=== PATIENT | female | born 1990 ===

== ENCOUNTER 2016-05-12 16:46 | Emergency (ER) | payer MEDICAID ==
[2016-05-12 16:55] VITALS: BP 120/61; PULSE 75; RESP 16; TEMP 98.2; O2SAT 100
[2016-05-12] MEDS ORDERED: Sodium Chloride 0.9% 1,000 ML IV STA (17:12)
--- NOTE | 2016-05-12 17:31 | ED PDOC ---
HPI: Abdomen Time Seen by Provider: 05/12/16 16:56 Chief Complaint (Nursing): Abdominal Pain Chief Complaint (Provider): flank pain History Per: Patient, Family (mom and dad) Additional Complaint(s): patient with no medical problems presents for 2-3 week hx of intermittent dysuria, right flank pain which started intermittently now constant for 1-2 days radiating to the right lower region and suprapubic region with chills ? subjective fevers at onset (none for at least a week). continued pain prompted evaluation. she has not taken anything for pain. (-) diarrhea, vomiting, hx of kidney stones, frequent UTIs, kidney infections mom with hx of kidney stones Past Medical History Reviewed: Historical Data, Nursing Documentation, Vital Signs Vital Signs: Last Vital Signs Temp 98.2 F 05/12/16 16:51 Pulse 75 05/12/16 16:51 Resp 16 05/12/16 16:51 BP 120/61 05/12/16 16:51 Pulse Ox 100 05/12/16 17:34 - Medical History PMH: No Chronic Diseases - Surgical History Surgical History: No Surg Hx - Family History Family History: States: No Known Family Hx, Other (kidney stones ) - Living Arrangements Living Arrangements: With Family - Social History Current smoker - smoking cessation education provided: No Alcohol: Occasional Drugs: Denies - Home Medications Home Medications: Ambulatory Orders Medication Instructions Recorded Ibuprofen [Motrin] 600 mg PO TID PRN #30 tab 05/12/16 Ondansetron [Zofran] 4 mg PO Q8H #8 tab 05/12/16 Sulfamethoxazole/Trimethoprim 1 tab PO BID #14 tab 05/12/16 [Bactrim DS 800 mg-160 mg] Tamsulosin [Flomax] 0.4 mg PO DAILY #4 cap 05/12/16 - Allergies Allergies/Adverse Reactions: Allergies Allergy/AdvReac Type Severity Reaction Status Date / Time No Known Allergies Allergy Verified 05/12/16 16:51 Review of Systems ROS Statement: Except As Marked, All Systems Reviewed And Found Negative Cardiovascular: Negative for: Chest Pain Respiratory: Negative for: Shortness of Breath Genitourinary Female: Positive for: Dysuria, Frequency, Vaginal Bleeding (slight , irregular periods for years, LMP end of March ). Negative for: Vaginal Discharge Neurological: Negative for: Headache, Dizziness Physical Exam - Reviewed Nursing Documentation Reviewed: Yes Vital Signs Reviewed: Yes - Physical Exam Appears: Positive for: Well, Uncomfortable Head Exam: Positive for: NORMAL INSPECTION Skin: Positive for: Normal Color, Warm, Dry Eye Exam: Positive for: Normal appearance Neck: Positive for: Normal, Painless ROM Cardiovascular/Chest: Positive for: Regular Rate, Rhythm Respiratory: Positive for: Normal Breath Sounds Pulses-Dorsalis Pedis (L): 2+ Pulses-Dorsalis Pedis (R): 2+ Gastrointestinal/Abdominal: Positive for: Normal Exam, Soft. Negative for: Tenderness Back: Positive for: Normal Inspection, R CVA Tenderness (mild ). Negative for: L CVA Tenderness, Vertebral Tenderness Extremity: Positive for: Normal ROM, Capillary Refill (normal ). Negative for: Tenderness Neurologic/Psych: Positive for: Alert, Oriented, Gait (normal ). Negative for: Motor/Sensory Deficits - Laboratory Results Result Diagrams: 05/12/16 17:37 05/12/16 17:37 - ECG O2 Sat by Pulse Oximetry: 100 Pulse Ox Interpretation: Normal Medical Decision Making Medical Decision Makin25 y/o female with flank pain, dysuria r/o stone, r/o pyelonephritis - labs - ct - ua and uc toradol and IVF pain has resolved, she feels better slight if any CVA tenderness, no abdominal tenderness labs with no acute finding. UA with blood no signs of infection, BUN/Cr wnl EXAM: CT Abdomen and Pelvis Without Intravenous Contrast. CLINICAL HISTORY: Pain; Abdominal pain; Other: Rlq R/O stone; Additional info: Right flank pain, dysuria TECHNIQUE: Axial computed tomography images of the abdomen and pelvis without intravenous contrast. This CT exam was performed using one or more of the following dose reduction techniques: automated exposure control, adjustment of the mA and/or kV according to patient size, and/or use of iterative reconstruction technique. Coronal and sagittal reformatted images were created and reviewed. EXAM DATE/TIME: 05/12/2016 COMPARISON: None available at the time of interpretation. FINDINGS: Lower thorax: No pleural fluid collection, pneumothorax, or airspace consolidation in the imaged portion of the thorax. ABDOMEN: Liver: No acute findings. Gallbladder and bile ducts: Questionable gallbladder wall thickening. The gallbladder is physiologically distended. No radiopaque gallstones or pericholecystic inflammatory changes. No biliary ductal dilation. Pancreas: No acute findings. Spleen: No acute findings. Adrenals: No acute findings. Kidneys and ureters: 4 x 3 x 4 mm right UVJ calculus. Mild dilation of the right renal collecting system and ureter. Small, nonobstructing calculi in both renal collecting systems. Stomach and bowel: No evident acute abnormality. Appendix: Normal appendix. PELVIS: Bladder: Aside from the right UVJ calculus, there is no evident acute abnormality of the bladder. Reproductive: No evident acute abnormality of the gynecologic structures. ABDOMEN and PELVIS: Intraperitoneal space: No free intraperitoneal air. A small amount of free fluid in the posterior cul de sac is physiologic in amount. Bones/joints: No acute findings. Soft tissues: No acute findings. Vasculature: No acute findings. Lymph nodes: No acute findings. IMPRESSION: 1. Obstructing 4 mm right UVJ calculus with associated mild hydroureteronephrosis. 2. Small, nonobstructing calculi in both renal collecting systems. 3. Questionable gallbladder wall thickening which is a nonspecific finding. No radiopaque gallstones or other findings suggestive of acute cholecystitis. Thank you for allowing us to participate in the care of your patient. Dictated and Authenticated by: Jenna Gupta MD 05/12/2016 7:39 PM Eastern Time ([place] & [place]) review of CT scan shows stones in kidney, obstructing stone. ? gallbladder thickening Lipase negative, no RUQ tenderness, normal LFTs, no pain after eating. she has no pain. appears well. case discussed with patient, mom and dad in detail including CT finding. follow up information discussed, return information discussed including fever, inability to urinate, severe pain. all questions answered. stable for discharge. Disposition - Clinical Impression Clinical Impression: Flank pain, Kidney stone, Ureteral colic - Patient ED Disposition Is Patient to be Admitted: No Counseled Patient/Family Regarding: Studies Performed, Diagnosis, Need For Followup, Rx Given - Disposition Referrals: Aubrey Balderas MD [Medical Doctor] - Disposition: Routine/Home Disposition Time: 19:43 Condition: IMPROVED Additional Instructions: CT scan shows: 1. Obstructing 4 mm right UVJ calculus with associated mild hydroureteronephrosis.- a blocking stone in the distal park of the tube as well as swelling of the tube that connects you bladder and kidney 2. Small, nonobstructing calculi in both renal collecting systems. 3. Questionable gallbladder wall thickening which is a nonspecific finding- follow up with doctor for re-evaluation without fail return for right upper pain , vomiting or any new concerns. follow up with urologist without fail for further evaluation and treatment. Prescriptions: Sulfamethoxazole/Trimethoprim [Bactrim DS 800 mg-160 mg] 1 tab PO BID #14 tab Tamsulosin [Flomax] 0.4 mg PO DAILY #4 cap Ibuprofen [Motrin] 600 mg PO TID PRN #30 tab PRN Reason: Other Ondansetron [Zofran] 4 mg PO Q8H #8 tab Instructions: Renal Colic (ED), Kidney Stones (ED), Flank Pain (ED) Print Language: KAZAKH
[2016-05-12 17:42] LABS: BASO # 0.1 K/uL (0.0-0.2); BASO % 0.8 % (0.0-2.0); EOS # 0.2 K/uL (0.0-0.7); EOS % 2.2 % (0.0-4.0); HEMATOCRIT 36.8 % (34.0-47.0); LYMPH # 2.1 K/uL (1.0-4.3); LYMPH % 23.3 % (20.0-40.0); MEAN CELL VOLUME 83.9 fl (81.0-99.0); MEAN CORPUSCULAR HEMOGLOBIN 27.2 pg (27.0-31.0); MEAN CORPUSCULAR HGB CONC 32.4 g/dL (33.0-37.0); MEAN PLATELET VOLUME 9.4 fl (7.2-11.7); MONO # 0.6 K/uL (0.0-0.8); MONO % 6.4 % (0.0-10.0); NEUT # 6.1 K/uL (1.8-7.0); NEUT % 67.3 % (50.0-75.0); NRBC % 0.1 % (0.0-0.0); RED CELL DISTRIBUTION WIDTH 14.5 % (11.5-14.5); WHITE BLOOD COUNT 9.1 K/uL (4.8-10.8)
[2016-05-12 17:51] LABS: ALB/GLOB RATIO 1.4 (1.0-2.1); ALKALINE PHOSPHATASE 46 U/L (38-126); ALT/SGPT 26 U/L (9-52); AST/SGOT 20 U/L (14-36); BILIRUBIN,TOTAL 0.2 mg/dl (0.2-1.3); BLOOD UREA NITROGEN 18 mg/dl (7-17); CALCIUM 9.1 mg/dL (8.4-10.2); CARBON DIOXIDE 25 mmol/L (22-30); CHLORIDE 105 mmol/L (98-107); GFR AFRICAN-AMERICAN > 60; GLUCOSE,RANDOM 123 mg/dL (65-105); LIPASE 124 U/L (23-300); POTASSIUM 3.9 MMOL/L (3.6-5.0); SODIUM 142 mmol/l (132-148); TOTAL PROTEIN 7.2 G/DL (6.3-8.2)
[2016-05-12 18:03] LABS: RBC URINE 26 /hpf (0-3); URINE BACTERIA RARE (<OCC); URINE BILIRUBIN NEGATIVE (NEGATIVE); URINE BLOOD SMALL (NEGATIVE); URINE COLOR YELLOW (YELLOW); URINE GLUCOSE (UA) NEG (Normal); URINE KETONE 20 mg/dL (NEGATIVE); URINE LEUKOCYTE ESTERASE NEG Leu/uL (Negative); URINE PROTEIN 100 mg/dL (NEGATIVE); WBC URINE 4 /hpf (0-5)
--- NOTE | 2016-05-12 20:38 | ED PDOC ---
- Laboratory Results Result Diagrams: 05/12/16 17:37 05/12/16 17:37 - ECG O2 Sat by Pulse Oximetry: 100 Medical Decision Making Medical Decision Making: Case endorsed to telegraphic typewriter operator from [place] Bae at 20:00 pending diagnostic review and re-eval HPI: Abdomen Time Seen by Provider: 05/12/16 16:56 Chief Complaint (Nursing): Abdominal Pain Chief Complaint (Provider): flank pain History Per: Patient, Family (mom and dad) Additional Complaint(s): patient with no medical problems presents for 2-3 week hx of intermittent dysuria, right flank pain which started intermittently now constant for 1-2 days radiating to the right lower region and suprapubic region with chills ? subjective fevers at onset (none for at least a week). continued pain prompted evaluation. she has not taken anything for pain. (-) diarrhea, vomiting, hx of kidney stones, frequent UTIs, kidney infections mom with hx of kidney stones CT results: IMPRESSION: 1. Obstructing 4 mm right UVJ calculus with associated mild hydroureteronephrosis. 2. Small, nonobstructing calculi in both renal collecting systems. 3. Questionable gallbladder wall thickening which is a nonspecific finding. No radiopaque gallstones or other findings suggestive of acute cholecystitis. Disposition - Clinical Impression Clinical Impression: Flank pain, Kidney stone, Ureteral colic - Disposition Referrals: Aubrey Balderas MD [Medical Doctor] - Condition: IMPROVED Additional Instructions: CT scan shows: 1. Obstructing 4 mm right UVJ calculus with associated mild hydroureteronephrosis.- a blocking stone in the distal park of the tube as well as swelling of the tube that connects you bladder and kidney 2. Small, nonobstructing calculi in both renal collecting systems. 3. Questionable gallbladder wall thickening which is a nonspecific finding- follow up with doctor for re-evaluation without fail return for right upper pain , vomiting or any new concerns. follow up with urologist without fail for further evaluation and treatment. Prescriptions: Sulfamethoxazole/Trimethoprim [Bactrim DS 800 mg-160 mg] 1 tab PO BID #14 tab Tamsulosin [Flomax] 0.4 mg PO DAILY #4 cap Ibuprofen [Motrin] 600 mg PO TID PRN #30 tab PRN Reason: Other Ondansetron [Zofran] 4 mg PO Q8H #8 tab Instructions: Kidney Stones (ED), Renal Colic (ED), Flank Pain (ED) Print Language: TUNISIAN
--- NOTE | 2016-05-13 10:19 | CT ---
PROCEDURE: CT Abdomen and Pelvis without Oral or IV contrast. HISTORY: right flank pain, dysuria COMPARISON: None available TECHNIQUE: Contiguous axial images of the abdomen and pelvis. No oral or IV contrast administered. Coronal and Sagittal reformats generated and reviewed. Radiation dose: Total exam DLP = 444. 60 mGy-cm. FINDINGS: There is limited evaluation of the solid organs without the administration of IV contrast. LOWER THORAX: No visible consolidation, pleural effusion, or pneumothorax. LIVER: Unremarkable unenhanced appearance. GALLBLADDER AND BILE DUCTS: Probable gallbladder wall thickening. No calcified gallstones evident. PANCREAS: Unremarkable unenhanced appearance. SPLEEN: Unremarkable unenhanced appearance. ADRENALS: Unremarkable unenhanced appearance. KIDNEYS AND URETERS: 4 mm right UVJ calculus with mild proximal hydroureteronephrosis. Additional small nonobstructing bilateral renal calculi evident. No left-sided hydronephrosis. BLADDER: The urinary bladder appears otherwise unremarkable. REPRODUCTIVE: Uterus is present. APPENDIX: The appendix appears within normal limits of caliber. No secondary signs of acute appendicitis. BOWEL: The stomach is nondistended. Lack of oral contrast limits evaluation for bowel pathology. The bowel loops appear within normal limits of caliber without evidence of intestinal obstruction. Mild constipation. PERITONEUM: Small pelvic free fluid may be physiologic. No definite free air. LYMPH NODES: No bulky lymphadenopathy identified. VASCULATURE: No aortic aneurysm. BONES: No acute osseous abnormality is detected. OTHER FINDINGS: None. IMPRESSION: 4 mm right UVJ calculus with mild proximal hydroureteronephrosis. Additional nonobstructing renal calculi noted bilaterally. Questionable gallbladder wall thickening. No calcified gallstones identified. Upper quadrant ultrasound may be considered for further evaluation if indicated. Preliminary impression was provided by virtual radiologic.
== END 2016-05-12 19:52 | disposition home or self-care (01) ==
LOC: H.ER 16:46
DX: N20.1 Calculus of ureter (principal); N13.2 Hydronephrosis with renal and ureteral calculous obstruction; R30.0 Dysuria
CPT/HCPCS: 74176; 80053; 81003; 81025; 83690; 85025; 87086; 96374; 99283; J1885; J7040

== ENCOUNTER 2016-05-19 16:21 | Emergency (ER) | payer MEDICAID ==
[2016-05-19 16:30] VITALS: BP 126/53; PULSE 100; RESP 20; TEMP 98.4; O2SAT 98
[2016-05-19 17:54] LABS: BASO % 0.7 % (0.0-2.0); EOS # 0.3 K/uL (0.0-0.7); EOS % 3.6 % (0.0-4.0); HEMATOCRIT 36.8 % (34.0-47.0); LYMPH # 2.2 K/uL (1.0-4.3); LYMPH % 31.2 % (20.0-40.0); MEAN CELL VOLUME 85.2 fl (81.0-99.0); MEAN CORPUSCULAR HEMOGLOBIN 27.3 pg (27.0-31.0); MEAN PLATELET VOLUME 9.7 fl (7.2-11.7); MONO # 0.5 K/uL (0.0-0.8); MONO % 7.6 % (0.0-10.0); NEUT % 56.9 % (50.0-75.0); NRBC % 0.1 % (0.0-0.0); RED CELL DISTRIBUTION WIDTH 14.4 % (11.5-14.5)
--- NOTE | 2016-05-19 18:00 | ED PDOC ---
HPI: Abdomen Time Seen by Provider: 05/19/16 16:39 Chief Complaint (Nursing): Abdominal Pain Chief Complaint (Provider): Abdominal Pain History Per: Patient History/Exam Limitations: no limitations Onset/Duration Of Symptoms: Days Outside of [place] travel?: No Current Symptoms Are (Timing): Still Present Severity: Moderate Location Of Pain/Discomfort: Diffuse Quality Of Discomfort: "Pain" Associated Symptoms: denies: Fever, Urinary Symptoms Additional History Per: Patient Additional Complaint(s): The pt is a 25yo female, presents to the ED for evaluation of continued abdominal pain. Pt was seen in the ED last week for renal colic and was informed she had a 4mm distal right stone. She presents today for continued pain which has now gotten worse in the groin area. She denies any back pain and states she had not followed up with a urologist. Pt reports she took her medications as prescribed except she did not take any pain medications for 3 days. At present, she offers no additional medical complaints. PMD: None provided Abnormal Vaginal Bleeding: No Past Medical History Reviewed: Historical Data, Nursing Documentation, Vital Signs Vital Signs: Last Vital Signs Temp 98.4 F 05/19/16 16:27 Pulse 100 H 05/19/16 16:27 Resp 20 05/19/16 16:27 BP 126/53 L 05/19/16 16:27 Pulse Ox 98 05/19/16 18:32 - Medical History PMH: No Chronic Diseases - Surgical History Surgical History: No Surg Hx - Family History Family History: States: Unknown Family Hx - Home Medications Home Medications: Ambulatory Orders Medication Instructions Recorded Ibuprofen [Motrin] 600 mg PO TID PRN #30 tab 05/12/16 Ondansetron [Zofran] 4 mg PO Q8H #8 tab 05/12/16 Sulfamethoxazole/Trimethoprim 1 tab PO BID #14 tab 05/12/16 [Bactrim DS 800 mg-160 mg] Tamsulosin [Flomax] 0.4 mg PO DAILY #4 cap 05/12/16 Phenazopyridine [Phenazopyridine 200 mg PO TID #6 tab 05/19/16 HCl] - Allergies Allergies/Adverse Reactions: Allergies Allergy/AdvReac Type Severity Reaction Status Date / Time No Known Allergies Allergy Verified 05/19/16 16:27 Review of Systems ROS Statement: Except As Marked, All Systems Reviewed And Found Negative Constitutional: Negative for: Fever Gastrointestinal: Positive for: Abdominal Pain Genitourinary Female: Negative for: Dysuria, Hematuria Physical Exam - Reviewed Nursing Documentation Reviewed: Yes Vital Signs Reviewed: Yes - Physical Exam Appears: Positive for: Well, Non-toxic, No Acute Distress Head Exam: Positive for: ATRAUMATIC, NORMAL INSPECTION, NORMOCEPHALIC Skin: Positive for: Normal Color, Warm, DRY Eye Exam: Positive for: Normal appearance Neck: Positive for: Normal Cardiovascular/Chest: Positive for: Regular Rate, Rhythm Respiratory: Positive for: Normal Breath Sounds. 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 Provider Attestation: All medical record entries made by the Scribe were at my direction and personally dictated by me. I have reviewed the chart and agree that the record accurately reflects my personal performance of the history, physical exam, medical decision making, and the department course for this patient. I have also personally directed, reviewed, and agree with the discharge instructions and disposition. UC negative from prior visit, will send new UC EXAM: US Retroperitoneal Limited, Renal. CLINICAL HISTORY: 25 years old, female; Pain; Other: Pelvic; Patient HX: See worksheet; Additional info: Pain, stones TECHNIQUE: Real-time ultrasound of the retroperitoneum (limited) with image documentation. COMPARISON: CT - ABD PELVIS W/O PO OR 05/12/2016 7:06:41 PM FINDINGS: Right kidney: Unremarkable. No stones. No solid mass. No hydronephrosis. Left kidney: Unremarkable. No stones. No solid mass. No hydronephrosis. IMPRESSION: Normal retroperitoneal ultrasound. Thank you for allowing us to participate in the care of your patient. Dictated and Authenticated by: Yulissa Garnica MD 05/19/2016 5:13 PM Eastern Time ([place] & [place]) labs with no wbc count. she appears in NAD and has no pain after toradol. US as above no hydronephrosis discussed that she likely had discomfort as she passed her stone. she will continue her abx. discussed with patient the need for follow up, stable for discharge. Disposition - Clinical Impression Clinical Impression: Kidney stone, Ureteral colic - Patient ED Disposition Is Patient to be Admitted: No Counseled Patient/Family Regarding: Studies Performed, Diagnosis, Need For Followup, Rx Given - Disposition Referrals: Aubrey Balderas MD [Medical Doctor] - Disposition Time: 19:02 Condition: IMPROVED Additional Instructions: follow up with urology without fail return for fevers, inability to urinate or any new concerns Prescriptions: Phenazopyridine [Phenazopyridine HCl] 200 mg PO TID #6 tab Instructions: Renal Colic (ED), Kidney Stones (ED)
[2016-05-19 18:06] LABS: BLOOD UREA NITROGEN 13 mg/dl (7-17); CALCIUM 9.2 mg/dL (8.4-10.2); CARBON DIOXIDE 25 mmol/L (22-30); CHLORIDE 105 mmol/L (98-107); GFR AFRICAN-AMERICAN > 60; GLUCOSE,RANDOM 100 mg/dL (65-105); LIPASE 134 U/L (23-300); POTASSIUM 4.3 MMOL/L (3.6-5.0); SODIUM 141 mmol/l (132-148)
[2016-05-19 18:35] LABS: RBC URINE 1 /hpf (0-3); URINE BACTERIA MOD (<OCC); URINE BILIRUBIN NEGATIVE (NEGATIVE); URINE BLOOD NEGATIVE (NEGATIVE); URINE CALCIUM OXALATE CRYSTALS OCC /hpf (<OCC); URINE COLOR YELLOW (YELLOW); URINE GLUCOSE (UA) NEG (Normal); URINE KETONE NEGATIVE (NEGATIVE); URINE LEUKOCYTE ESTERASE TRACE Leu/uL (Negative); URINE PROTEIN 30 mg/dL (NEGATIVE); URINE UROBILINOGEN 0.2-1.0 mg/dL (0.2-1.0); WBC URINE 4 /hpf (0-5)
--- NOTE | 2016-05-20 08:44 | US ---
PROCEDURE: Ultrasound of the Kidneys HISTORY: pain, stones COMPARISON: None available. TECHNIQUE: Grayscale imaging was performed. FINDINGS: RIGHT KIDNEY: Measures: 9.3 cm. Normal in size, contour and echogenicity. No stone, solid mass lesion or hydronephrosis visualized. LEFT KIDNEY: Measures: 9.3 cm. Normal in size, contour and echogenicity. No stone, solid mass lesion or hydronephrosis visualized. OTHER FINDINGS: None. IMPRESSION: No hydronephrosis or nephrolithiasis.
== END 2016-05-19 19:23 | disposition home or self-care (01) ==
LOC: H.ER 16:21
DX: N20.0 Calculus of kidney (principal); N23 Unspecified renal colic

== ENCOUNTER 2017-10-11 04:12 | Emergency (ER) | payer MEDICAID, OTHER ==
[2017-10-11] MEDS ORDERED: Sodium Chloride 0.9% 1,000 ML IV ONE (04:46)
--- NOTE | 2017-10-11 04:58 | ED PDOC ---
HPI: Female Pain <Wilmer Colunga - Last Filed: 10/11/17 07:19> Chief Complaint (Provider): Female Genitourinary History Per: Patient History/Exam Limitations: no limitations Onset/Duration Of Symptoms: Days (x7) Current Symptoms Are (Timing): Still Present Quality Of Discomfort: "Pain" Associated Symptoms: Back Pain, Urinary Symptoms Additional Complaint(s): 27 y/o female with a PMHx of UTIs and kidney stones presents to the ED for evaluation of urinary frequency, urgency, and dysuria for approximately one week. Patient reports urinary symptoms are associated with worsening lower abdominal pain, right sided flank pain, and lower back pain. Patient last took Advil for symptoms earlier today. Patient reports that last year when she had a kidney stone, they recommended laser surgery which she had declined. Otherwise: (-) fever, (-) chills, (-) diarrhea, (-) vomiting, (-) shortness of breath (-) chest pain (-) hematuria. Patient does admit to alcohol use prior to arrival in ED. PMD: Bruce Dominguez 09/09/2017 <Talia Georges - Last Filed: 10/13/17 05:24> Time Seen by Provider: 10/11/17 04:40 Chief Complaint (Nursing): Female Genitourinary Past Medical History Vital Signs: Last Vital Signs Temp 98.2 F 10/11/17 04:36 Pulse 113 H 10/11/17 04:36 Resp 10/11/17 04:36 BP 131/84 10/11/17 04:36 Pulse Ox 99 10/11/17 06:10 <Wilmer Colunga - Last Filed: 10/11/17 07:19> Reviewed: Historical Data, Nursing Documentation, Vital Signs Vital Signs: Last Vital Signs Temp 98.2 F 10/11/17 04:36 Pulse 113 H 10/11/17 04:36 Resp 17 10/11/17 04:36 BP 131/84 10/11/17 04:36 Pulse Ox 99 10/11/17 04:36 - Medical History PMH: No Chronic Diseases - Family History Family History: States: Unknown Family Hx - Social History Current smoker - smoking cessation education provided: No Alcohol: Social Drugs: Denies <Talia Georges - Last Filed: 10/13/17 05:24> - Home Medications Home Medications: Ambulatory Orders Medication Instructions Recorded Ibuprofen [Motrin] 600 mg PO TID PRN #30 tab 05/12/16 Ondansetron [Zofran] 4 mg PO Q8H #8 tab 05/12/16 Sulfamethoxazole/Trimethoprim 1 tab PO BID #14 tab 05/12/16 [Bactrim DS 800 mg-160 mg] Tamsulosin [Flomax] 0.4 mg PO DAILY #4 cap 05/12/16 Phenazopyridine [Phenazopyridine 200 mg PO TID #6 tab 05/19/16 HCl] Naproxen [Naprosyn] 500 mg PO BID PRN #15 tablet 10/11/17 Nitrofurantoin Macrocrystals 100 mg PO BID #13 cap 10/11/17 [Macrobid] - Allergies Allergies/Adverse Reactions: Allergies Allergy/AdvReac Type Severity Reaction Status Date / Time No Known Allergies Allergy Verified 05/19/16 16:27 Review of Systems ROS Statement: Except As Marked, All Systems Reviewed And Found Negative Gastrointestinal: Positive for: Abdominal Pain Genitourinary Female: Positive for: Dysuria, Frequency Musculoskeletal: Positive for: Back Pain <DestiniTalia Ana María - Last Filed: 10/13/17 05:24> Physical Exam - Reviewed Nursing Documentation Reviewed: Yes Vital Signs Reviewed: Yes - Physical Exam Comments: GENERAL APPEARANCE: Patient is awake, alert, oriented x3, in mild painful distress. SKIN: Warm, dry; (-) cyanosis. EYES: (-) conjunctival pallor, (-) scleral icterus (+) bilateral conjunctival injection ENMT: Mucous membranes moist. Airway patent, (-) stridor. NECK: Supple, FROM CHEST AND RESPIRATORY: (-) rales, (-) rhonchi, (-) wheezes; breath sounds equal bilaterally. Respirations even and nonlabored. HEART AND CARDIOVASCULAR: (-) irregularity ABDOMEN AND GI: Soft (-) distention. Bowel sounds active x4; (+) suprapubic tenderness (-) guarding, (-) rebound, (-) palpable masses, (+) Right CVA tenderness. EXTREMITIES: (-) deformity NEURO AND PSYCH: Mental status as above; (-) focal findings. Gait steady, speech clear. <DestiniTalia K - Last Filed: 10/13/17 05:24> - Laboratory Results Result Diagrams: 10/11/17 04:54 10/11/17 04:54 <Wilmer Colunga Pia - Last Filed: 10/11/17 07:19> - Laboratory Results Result Diagrams: 10/11/17 04:54 10/11/17 04:54 Urine POC: Negative - ECG O2 Sat by Pulse Oximetry: 99 (RA) Pulse Ox Interpretation: Normal <Talia Georges - Last Filed: 10/13/17 05:24> Medical Decision Making Medical Decision Making: Time: 0700 -- Patient endorsed to Dr. Shafer, pending CT results Scribe Attestation: Documented by Abby Carvajal acting as a scribe for Dr. Wilmer Colunga MD. Provider Scribe Attestation: All medical record entries made by the Scribe were at my direction and personally dictated by me. I have reviewed the chart and agree that the record accurately reflects my personal performance of the history, physical exam, medical decision making, and the department course for this patient. I have also personally directed, reviewed, and agree with the discharge instructions and disposition. <Wilmer Colunga Pia - Last Filed: 10/11/17 07:19> Medical Decision Making: Time: 0454 Impression: Urinary frequency and urgency, flank pain, UTI VS. Renal Colic Plan: -- Alcohol Serum -- CMP -- Urine Drug Screen -- ED Urine Test -- Sodium Chloride IV 1000 mls/hr -- Tylenol 650 mg PO -- Urine Culture -- IV Insertion -- Urinalysis 0515 Upreg: negative CBC unremarkable. U/A: (+) hematuria, leukocytes CT abd/pel ordered for further evaluation of nephrolithiasis. 0530 Urine drug screen: Negative Tramadol 50mg PO ordered as patient requesting additional pain medication at this time. 0545 Serum Alcohol: 187 CMP unremarkable. [address] 0630 Continuation of care per Dr Colunga pending CT evaluation, further disposition. Scribe Attestation: Documented by Abby Carvajal acting as a scribe for Talia Georges PA-C. Provider Scribe Attestation: All medical record entries made by the Scribe were at my direction and personally dictated by me. I have reviewed the chart and agree that the record accurately reflects my personal performance of the history, physical exam, medical decision making, and the department course for this patient. I have also personally directed, reviewed, and agree with the discharge instructions and disposition. <Talia Georges - Last Filed: 10/13/17 05:24> Disposition - Patient ED Disposition Is Patient to be Admitted: Transfer of Care - Disposition Disposition: Transfer of Care Disposition Time: 07:00 Patient Signed Over To: Myranda Shafer <Wilmer Colunga A - Last Filed: 10/11/17 07:19> - POA Present On Arrival: None <Talia Georges - Last Filed: 10/13/17 05:24> - Clinical Impression Clinical Impression: Urinary tract infection, Kidney stone - Disposition Referrals: Rogers Tapia MD [Medical Doctor] - Bruce Dominguez DO [Family Provider] - Condition: STABLE Prescriptions: Naproxen [Naprosyn] 500 mg PO BID PRN #15 tablet PRN Reason: Pain, Moderate (4-7) Nitrofurantoin Macrocrystals [Macrobid] 100 mg PO BID #13 cap Instructions: Urinary Tract Infections in Adults, Kidney Stones in Adults Forms: [employer] ([place]) Results - Lab Results Lab Results: 10/11/17 10/11/17 10/11/17 04:54 04:54 04:52 WBC 9.1 RBC 4.50 Hgb 12.7 Hct 38.3 MCV 85.1 MCH 28.2 MCHC 33.1 RDW 14.4 Plt Count 253 MPV 9.4 Neut % (Auto) 67.4 Lymph % (Auto) 21.7 [place] % (Auto) 7.3 Eos % (Auto) 2.3 Baso % (Auto) 1.3 Neut # (Auto) 6.1 Lymph # (Auto) 2.0 [place] # (Auto) 0.7 Eos # (Auto) 0.2 Baso # (Auto) 0.1 Sodium 141 Potassium 4.1 Chloride 105 Carbon Dioxide 25 Anion Gap 15 BUN 19 H Creatinine 1.1 Est GFR ( Amer) > 60 Est GFR (Non-Af Amer) 59 Random Glucose 111 H Calcium 9.3 Total Bilirubin 0.2 AST 27 ALT 25 Alkaline Phosphatase 53 Total Protein 7.3 Albumin 4.4 Globulin 2.9 Albumin/Globulin Ratio 1.5 Urine Color Urine Clarity Urine pH Ur Specific [place] Urine Protein Urine Glucose (UA) Urine Ketones Urine Blood Urine Nitrate Urine Bilirubin Urine Urobilinogen Ur Leukocyte Esterase Urine RBC (Auto) Urine Microscopic WBC Ur Squamous Epith Cells Urine Bacteria Urine Opiates Screen Negative Urine Methadone Screen Negative Ur Barbiturates Screen Negative Ur Phencyclidine Scrn Negative Ur Amphetamines Screen Negative U Benzodiazepines Scrn Negative U Oth Cocaine Metabols Negative U Cannabinoids Screen Negative Alcohol, Quantitative 187 H 10/11/17 04:52 WBC RBC Hgb Hct MCV MCH MCHC RDW Plt Count MPV Neut % (Auto) Lymph % (Auto) [place] % (Auto) Eos % (Auto) Baso % (Auto) Neut # (Auto) Lymph # (Auto) [place] # (Auto) Eos # (Auto) Baso # (Auto) Sodium Potassium Chloride Carbon Dioxide Anion Gap BUN Creatinine Est GFR ( Amer) Est GFR (Non-Af Amer) Random Glucose Calcium Total Bilirubin AST ALT Alkaline Phosphatase Total Protein Albumin Globulin Albumin/Globulin Ratio Urine Color Yellow Urine Clarity Cloudy Urine pH 6.0 Ur Specific [place] 1.011 Urine Protein Negative Urine Glucose (UA) Neg Urine Ketones Negative Urine Blood Large Urine Nitrate Negative Urine Bilirubin Negative Urine Urobilinogen 0.2-1.0 Ur Leukocyte Esterase Trace Urine RBC (Auto) 109 H Urine Microscopic WBC 11 H Ur Squamous Epith Cells 2 Urine Bacteria Many H Urine Opiates Screen Urine Methadone Screen Ur Barbiturates Screen Ur Phencyclidine Scrn Ur Amphetamines Screen U Benzodiazepines Scrn U Oth Cocaine Metabols U Cannabinoids Screen Alcohol, Quantitative <Wilmer Colunga A - Last Filed: 10/11/17 07:19> - Lab Results Lab Results: 10/11/17 10/11/17 10/11/17 04:54 04:54 04:52 WBC 9.1 RBC 4.50 Hgb 12.7 Hct 38.3 MCV 85.1 MCH 28.2 MCHC 33.1 RDW 14.4 Plt Count 253 MPV 9.4 Neut % (Auto) 67.4 Lymph % (Auto) 21.7 [place] % (Auto) 7.3 Eos % (Auto) 2.3 Baso % (Auto) 1.3 Neut # (Auto) 6.1 Lymph # (Auto) 2.0 [place] # (Auto) 0.7 Eos # (Auto) 0.2 Baso # (Auto) 0.1 Sodium 141 Potassium 4.1 Chloride 105 Carbon Dioxide 25 Anion Gap 15 BUN 19 H Creatinine 1.1 Est GFR ( Amer) > 60 Est GFR (Non-Af Amer) 59 Random Glucose 111 H Calcium 9.3 Total Bilirubin 0.2 AST 27 ALT 25 Alkaline Phosphatase 53 Total Protein 7.3 Albumin 4.4 Globulin 2.9 Albumin/Globulin Ratio 1.5 Urine Color Urine Clarity Urine pH Ur Specific [place] Urine Protein Urine Glucose (UA) Urine Ketones Urine Blood Urine Nitrate Urine Bilirubin Urine Urobilinogen Ur Leukocyte Esterase Urine RBC (Auto) Urine Microscopic WBC Ur Squamous Epith Cells Urine Bacteria Urine Opiates Screen Negative Urine Methadone Screen Negative Ur Barbiturates Screen Negative Ur Phencyclidine Scrn Negative Ur Amphetamines Screen Negative U Benzodiazepines Scrn Negative U Oth Cocaine Metabols Negative U Cannabinoids Screen Negative Alcohol, Quantitative 187 H 10/11/17 04:52 WBC RBC Hgb Hct MCV MCH MCHC RDW Plt Count MPV Neut % (Auto) Lymph % (Auto) [place] % (Auto) Eos % (Auto) Baso % (Auto) Neut # (Auto) Lymph # (Auto) [place] # (Auto) Eos # (Auto) Baso # (Auto) Sodium Potassium Chloride Carbon Dioxide Anion Gap BUN Creatinine Est GFR ( Amer) Est GFR (Non-Af Amer) Random Glucose Calcium Total Bilirubin AST ALT Alkaline Phosphatase Total Protein Albumin Globulin Albumin/Globulin Ratio Urine Color Yellow Urine Clarity Cloudy Urine pH 6.0 Ur Specific [place] 1.011 Urine Protein Negative Urine Glucose (UA) Neg Urine Ketones Negative Urine Blood Large Urine Nitrate Negative Urine Bilirubin Negative Urine Urobilinogen 0.2-1.0 Ur Leukocyte Esterase Trace Urine RBC (Auto) 109 H Urine Microscopic WBC 11 H Ur Squamous Epith Cells 2 Urine Bacteria Many H Urine Opiates Screen Urine Methadone Screen Ur Barbiturates Screen Ur Phencyclidine Scrn Ur Amphetamines Screen U Benzodiazepines Scrn U Oth Cocaine Metabols U Cannabinoids Screen Alcohol, Quantitative <Talia Georges - Last Filed: 10/13/17 05:24>
[2017-10-11 05:02] LABS: SQUAMOUS EPITHIAL 2 /hpf (0-5); URINE BACTERIA MANY (<OCC); URINE BILIRUBIN NEGATIVE (NEGATIVE); URINE BLOOD LARGE (NEGATIVE); URINE CLARITY CLOUDY (Clear); URINE COLOR YELLOW (YELLOW); URINE GLUCOSE (UA) NEG (Normal); URINE LEUKOCYTE ESTERASE TRACE Leu/uL (Negative); URINE PROTEIN NEGATIVE (NEGATIVE); URINE UROBILINOGEN 0.2-1.0 mg/dL (0.2-1.0)
[2017-10-11 05:08] LABS: BASO # 0.1 K/uL (0.0-0.2); BASO % 1.3 % (0.0-2.0); EOS # 0.2 K/uL (0.0-0.7); EOS % 2.3 % (0.0-4.0); HEMOGLOBIN 12.7 g/dL (12.0-16.0); LYMPH % 21.7 % (20.0-40.0); MEAN CELL VOLUME 85.1 fl (81.0-99.0); MEAN CORPUSCULAR HEMOGLOBIN 28.2 pg (27.0-31.0); MEAN CORPUSCULAR HGB CONC 33.1 g/dL (33.0-37.0); MEAN PLATELET VOLUME 9.4 fl (7.2-11.7); MONO # 0.7 K/uL (0.0-0.8); MONO % 7.3 % (0.0-10.0); NEUT # 6.1 K/uL (1.8-7.0); NEUT % 67.4 % (50.0-75.0); RBC 4.5 Mil/uL (3.80-5.20); RED CELL DISTRIBUTION WIDTH 14.4 % (11.5-14.5); WHITE BLOOD COUNT 9.1 K/uL (4.8-10.8)
[2017-10-11 05:21] LABS: BARBITURATES, UR NEGATIVE (NEGATIVE); BENZODIAZEPINES, UR NEGATIVE (NEGATIVE); OPIATES, UR NEGATIVE (NEGATIVE); PHENCYCLIDINE, UR NEGATIVE (NEGATIVE)
[2017-10-11 05:37] LABS: ALB/GLOB RATIO 1.5 (1.0-2.1); ALBUMIN 4.4 g/dL (3.5-5.0); ALT/SGPT 25 U/L (9-52); AST/SGOT 27 U/L (14-36); BLOOD UREA NITROGEN 19 mg/dl (7-17); CALCIUM 9.3 mg/dL (8.4-10.2); GFR AFRICAN-AMERICAN > 60; GFR NON-AFRICAN AMERICAN 59
--- NOTE | 2017-10-11 07:26 | ED PDOC ---
- Laboratory Results Result Diagrams: 10/11/17 04:54 10/11/17 04:54 Urine POC: Negative - ECG O2 Sat by Pulse Oximetry: 99 (RA) Pulse Ox Interpretation: Normal Medical Decision Making Medical Decision Making: Time: 699 -- Patient endorsed to me by Dr. Colunga, pending CT results. Time: 804 EXAM: CT Abdomen and Pelvis Without Intravenous Contrast CLINICAL HISTORY: 27 years old, female; Pain; Abdominal pain; Other: Severe abd pain; Additional info: Renal colic TECHNIQUE: Axial computed tomography images of the abdomen and pelvis without intravenous contrast. All CT scans at this facility use at least one of these dose optimization techniques: automated exposure control; mA and/or kV adjustment per patient size (includes targeted exams where dose is matched to clinical indication); or iterative reconstruction. COMPARISON: No relevant prior studies available. FINDINGS: Lung bases: Unremarkable. No mass. No consolidation. ABDOMEN: Liver: Unremarkable. Gallbladder and bile ducts: Unremarkable. No calcified stones. No ductal dilation. Pancreas: Unremarkable. No ductal dilation. Spleen: Unremarkable. No splenomegaly. Adrenals: Unremarkable. No mass. Kidneys and ureters: There is mild right hydronephrosis and hydroureter likely secondary to a 3 mm stone in the right bladder base.The left kidney is normal. There are multiple right renal collecting system calcifications. Stomach and bowel: Unremarkable. No obstruction. No mucosal thickening. PELVIS: Appendix: A normal appendix is identified. Bladder: Unremarkable. No stones. Reproductive: Unremarkable as visualized. ABDOMEN and PELVIS: Intraperitoneal space: Unremarkable. No free air. No significant fluid collection. Bones/joints: No acute fracture. No dislocation. Soft tissues: Unremarkable. Vasculature: Unremarkable. No abdominal aortic aneurysm. Lymph nodes: Unremarkable. No enlarged lymph nodes. IMPRESSION: Right hydroureteronephrosis secondary to a 3 mm stone in the bladder base Thank you for allowing us to participate in the care of your patient. Dictated and Authenticated by: Nani Estrada MD 10/11/2017 8:05 AM Eastern Time ([place] & [place]) Scribe Attestation: Documented by Abby Carvajal acting as a scribe for Dr. Myranda Shafer MD. Provider Scribe Attestation: All medical record entries made by the Scribe were at my direction and personally dictated by me. I have reviewed the chart and agree that the record accurately reflects my personal performance of the history, physical exam, medical decision making, and the department course for this patient. I have also personally directed, reviewed, and agree with the discharge instructions and disposition. Disposition - Clinical Impression Clinical Impression: Urinary tract infection, Kidney stone - Disposition Condition: FAIR Prescriptions: Naproxen [Naprosyn] 500 mg PO BID PRN #15 tablet PRN Reason: Pain, Moderate (4-7) Nitrofurantoin Macrocrystals [Macrobid] 100 mg PO BID #13 cap Forms: [email or web address] [facility] ([place])
[2017-10-11 08:44] VITALS: BP 120/63; PULSE 69; RESP 16; TEMP 97.6
--- NOTE | 2017-10-11 18:00 | CT ---
Date of service: 10/11/2017 PROCEDURE: CT Abdomen and Pelvis without intravenous contrast HISTORY: renal colic COMPARISON: 05/12/2016 TECHNIQUE: Without contrast.. Contrast dose: 0 Radiation dose: Total exam DLP = 491.28 mGy-cm. This CT exam was performed using one or more of the following dose reduction techniques: Automated exposure control, adjustment of the mA and/or kV according to patient size, and/or use of iterative reconstruction technique. FINDINGS: LOWER THORAX: Unremarkable. LIVER: Unremarkable. No gross lesion or ductal dilatation. GALLBLADDER AND BILE DUCTS: Gallbladder contracted. No calcified stones. PANCREAS: Unremarkable. No gross lesion or ductal dilatation. SPLEEN: Unremarkable. ADRENALS: Unremarkable. No mass. KIDNEYS AND URETERS: Several small nonobstructing right renal calculi. Mild right hydroureteronephrosis. 4 mm calculus at the right ureteral orifice protruding into the bladder lumen. No renal mass. No left renal calculus. Previously identified left renal calculi are no longer evident. VASCULATURE: Unremarkable. No aortic aneurysm. BOWEL: Unremarkable. No obstruction. No gross mural thickening. APPENDIX: Unremarkable. Normal appendix. PERITONEUM: Unremarkable. No free fluid. No free air. LYMPH NODES: Unremarkable. No enlarged lymph nodes. BLADDER: Unremarkable. REPRODUCTIVE: Normal uterus BONES: No acute fracture. OTHER FINDINGS: None. IMPRESSION: Obstructing 4 mm calculus at right ureteral orifice with mild right hydroureteronephrosis. Nonobstructing small right renal calculi. Otherwise unremarkable. The preliminary findings for this examination were reported by [facility] at 8:05 a.m. on 10/11/2017. There is concurrence of this report with the preliminary findings.
[2017-10-13 05:21] VITALS: O2SAT 99
== END 2017-10-11 08:30 | disposition home or self-care (01) ==
LOC: H.ER 04:12
DX: N39.0 Urinary tract infection, site not specified (principal); N13.6 Pyonephrosis
CPT/HCPCS: 74176; 80053; 80320; 80324; 80345; 80346; 80349; 80353; 80358; 80361; 81003; 81025; 83992; 85025; 87086; 96360; 99284; J7040